=== PATIENT | female | born 1995 | race Caucasian/White ===

== ENCOUNTER 2016-09-28 01:51 | Emergency (ER) | payer SELFPAY ==
--- NOTE | 2016-09-28 02:01 | Emergency Department Record ---
History of Present Illness - General Chief complaint: Extremity Problem Stated complaint: POPPED RT WRIST Time Seen by Provider: 09/28/16 01:59 Source: Patient Mode of Arrival: Ambulatory Limitations: No limitations - History of Present Illness Initial comments: The patient states she "popped" her R wrist at work 3 hours ago and now is having slight pain in the area of the wrist. She denies any fall or direct trauma. She also denies any numbness or tingling. MD Complaint: Extremity pain Onset/Timin -: Hour(s) Location: Right History of Same: No Radiation: Distal Severity scale (1-10): 3 Improves with: Rest Worsens with: Palpation, Other Associated Symptoms: Denies other symptoms - Related Data Home Medications Medication Instructions Recorded Confirmed Last Taken Etonogestrel [Nexplanon] 68 mg SQ CONT 06/24/16 09/28/16 06/24/16 Allergies Allergy/AdvReac Type Severity Reaction Status Date / Time No Known Drug Allergies Allergy Verified 03/10/16 19:24 Travel Screening - Travel/Exposure Within Last 30 Days Have you traveled within the last 30 days?: No - Travel/Exposure Within Last Year Have you traveled outside the [place] in the last year?: No - Additonal Travel Details Have you been exposed to anyone with a communicable illness?: No - Travel Symptoms Symptom Screening: None Review of Systems Constitutional: Denies: Chills, Fever Eyes: Denies: Eye discharge ENT: Denies: Congestion Respiratory: Denies: Cough Past Medical History - SOCIAL HISTORY Smoking Status: Never smoker Alcohol Use: Occassional Drug Use: None - RESPIRATORY Hx Respiratory Disorders: No - CARDIOVASCULAR Hx Cardio Disorders: No - NEURO Hx Neuro Disorders: Yes Hx Headaches: Yes Comment:: macular degeneration - GI Hx GI Disorders: No - Hx Genitourinary Disorders: No - ENDOCRINE Hx Endocrine Disorders: No - MUSCULOSKELETAL Hx Musculoskeletal Disorders: No - PSYCH Hx Psych Problems: No Hx Depression: Yes Comment:: "borderline bi-polar" - HEMATOLOGY/ONCOLOGY Hx Hematology/Oncology Disorders: No Family Medical History Any Significant Family History?: Yes Family Hx Comment (NOT TO BE USED IN PLACE OF ITEMS BELOW): cerebral aneuerysm- grandmother Hx Diabetes: Mother Hx HTN: Mother, Brother/Sister, Grandparents Physical Exam - General General Appearance: Alert, Oriented x3, Cooperative, No acute distress - Head Head exam: Atraumatic, Normocephalic, Normal inspection - Eye Eye exam: Normal appearance, PERRL - Extremities Extremities exam: Normal inspection, Full ROM, Normal capillary refill, Tenderness (There is mild dorsal carpal tenderness.), Other (The R hand is NVI.) . negative: Joint swelling Course Vital Signs 09/28/16 01:57 Temperature 97.9 F Pulse Rate [ 85 Pulse Ox Probe] Respiratory 16 Rate Blood Pressure 107/72 [Left Arm] Pulse Ox 99 - Reevaluation(s) Reevaluation #1: I explained to the patient the xrays appear normal. We will place the wrist in a velcro splint and have her F/U with her work Occupational Health provider tomorrow. 09/28/16 02:19 Medical Decision Making - Data Complexity MDM Data: X-Ray Ordered and/or Reviewed - Radiology Data Radiology results: Report reviewed (R Wrist: neg.) Disposition Disposition: Discharge Clinical Impression: Acute wrist pain Qualifiers: Laterality: right Qualified Code(s): M25.531 - Pain in right wrist Disposition: Home, Self-Care Condition: (1) Good Instructions: Wrist Injury (ED) Additional Instructions: Please use Tylenol or Motrin for pain and ice and elevate the wrist when possible. Use the splint during the day. Please see your work Occupational health provider tomorrow for recheck. Forms: Patient Portal Access Time of Disposition: 02:21
[2016-09-28] MEDS ORDERED: IBUPROFEN 400 MG TABLET PO ONE (02:20)
--- NOTE | 2016-09-29 13:10 | RADIOLOGY REPORT ---
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 PAIN AND SWELLING SINCE. TECHNIQUE: Frontal, oblique, lateral, and navicular views of the right wrist were obtained. Comparison: None. Encounter: Initial. FINDINGS: There is normal bone mineralization. No acute fracture, dislocation , or destructive bone lesion is seen. The articular relations are maintained. No periarticular soft tissue abnormality is identified. IMPRESSION: NO ACUTE BONE OR JOINT ABNORMALITY IDENTIFIED. JOB NUMBER: [id number] MTDD
== END 2016-09-28 02:35 | disposition home or self-care (01) ==
LOC: ER 01:51
DX: G89.11 Acute pain due to trauma (principal); M25.532 Pain in left wrist; X50.9XXA Other and unspecified overexertion or strenuous movements or postures, initial encounter; Y99.0 Civilian activity done for income or pay
CPT/HCPCS: 99283

== ENCOUNTER 2016-11-22 14:30 | Emergency (ER) | payer SELFPAY ==
--- NOTE | 2016-11-22 14:51 | Emergency Department Record ---
History of Present Illness - General Chief Complaint: Headache Migraine Stated Complaint: CABRAL Time Seen by Provider: 11/22/16 14:42 Source: Patient, RN notes reviewed Mode of Arrival: Ambulatory - History of Present Illness Initial Comments: headache which started 4 days ago came on gradually slowly getting worse. Sat took 400 mg of ibuprofin. Complaint: Headache Onset/Timin -: Days(s) Onset Description: Sudden Location: Occipital Severity scale (1-10): 6 Quality: Other Consistency: Constant Improves With: Nothing Worsens With: None Context: Occured with exertion/activity Associated Symptoms: Nausea, Neck stiffness, Photophobia, Sensitivity to sound Treatments Prior to Arrival: None - Related Data Home Medications Medication Instructions Recorded Confirmed Last Taken Etonogestrel [Nexplanon] 68 mg SQ CONT 06/24/16 11/22/16 11/22/16 Pantoprazole Sodium [Protonix] 40 mg PO ASDIR PRN 11/22/16 11/22/16 Unknown Previous Rx's Medication Instructions Recorded Naproxen [Naprosyn] 500 mg PO Q12H #30 tab. 11/22/16 Allergies Allergy/AdvReac Type Severity Reaction Status Date / Time No Known Drug Allergies Allergy Verified 03/10/16 19:24 Travel Screening - Travel/Exposure Within Last 30 Days Have you traveled within the last 30 days?: No - Travel/Exposure Within Last Year Have you traveled outside the [place] in the last year?: No - Additonal Travel Details Have you been exposed to anyone with a communicable illness?: No - Travel Symptoms Symptom Screening: None Review of Systems Reviewed: No additional complaints except as noted below Constitutional: Reports: As per HPI. Denies: Chills, Fever, Malaise, Night sweats, Weakness, Weight change Eyes: Reports: As per HPI. Denies: Eye discharge, Eye pain, Photophobia, Vision change ENT: Reports: As per HPI. Denies: Congestion, Dental pain, Ear pain, Epistaxis , Hearing loss, Throat pain Respiratory: Reports: As per HPI. Denies: Cough, Dyspnea, Hemoptysis, Stridor, Wheezes Cardiovascular: Reports: As per HPI. Denies: Arrhythmia, Chest pain, Dyspnea on exertion, Edema, Murmurs, Orthopnea, Palpitations, Paroxysmal nocturnal dyspnea, Rheumatic Fever, Syncope Endocrine: Reports: As per HPI. Denies: Fatigue, Heat or cold intolerance, Polydipsia, Polyuria Gastrointestinal: Reports: As per HPI. Denies: Abdominal pain, Constipation, Diarrhea, Hematemesis, Hematochezia, Melena, Nausea, Vomiting Genitourinary: Reports: As per HPI. Denies: Abnormal menses, Discharge, Dyspareunia, Dysuria, Frequency, Hematuria, Incontinence, Retention, Urgency Musculoskeletal: Reports: As per HPI. Denies: Arthralgia, Back pain, Gout, Joint swelling, Myalgia, Neck pain Skin: Reports: As per HPI. Denies: Bruising, Change in color, Change in hair/ nails, Lesions, Pruritus, Rash Neurological: Reports: As per HPI, Headache. Denies: Abnormal gait, Confusion, Numbness, Paresthesias, Seizure, Tingling, Tremors, Vertigo, Weakness Psychiatric: Reports: As per HPI. Denies: Anxiety, Auditory hallucinations, Depression, Homicidal thoughts, Suicidal thoughts, Visual hallucinations Hematological/Lymphatic: Reports: As per HPI. Denies: Anemia, Blood Clots, Easy bleeding, Easy bruising, Swollen glands Past Medical History - SOCIAL HISTORY Smoking Status: Never smoker Alcohol Use: Rare Drug Use: None - RESPIRATORY Hx Respiratory Disorders: No - CARDIOVASCULAR Hx Cardio Disorders: No - NEURO Hx Neuro Disorders: Yes Hx Headaches: Yes Comment:: macular degeneration - GI Hx GI Disorders: No - Hx Genitourinary Disorders: No - ENDOCRINE Hx Endocrine Disorders: No - MUSCULOSKELETAL Hx Musculoskeletal Disorders: No - PSYCH Hx Psych Problems: No Hx Depression: Yes Comment:: "borderline bi-polar" - HEMATOLOGY/ONCOLOGY Hx Hematology/Oncology Disorders: No Family Medical History Any Significant Family History?: No Family Hx Comment (NOT TO BE USED IN PLACE OF ITEMS BELOW): cerebral aneuerysm- grandmother Hx Diabetes: Mother Hx HTN: Mother, Brother/Sister, Grandparents Physical Exam - General General Appearance: Alert, Oriented x3, Cooperative, No acute distress - Head Head exam: Normal inspection - Eye Eye exam: Normal appearance, PERRL Pupils: Normal accommodation - ENT ENT exam: Normal exam, Mucous membranes moist, Normal external ear exam, Normal orophraynx, TM's normal bilaterally Ear exam: Normal external inspection. negative: External canal tenderness Nasal Exam: Normal inspection. negative: Discharge, Sinus tenderness Mouth exam: Normal external inspection, Tongue normal Teeth exam: Normal inspection. negative: Dental caries Throat exam: Normal inspection. negative: Tonsillar erythema, Tonsillar exudate - Neck Neck exam: Normal inspection, Full ROM, Tenderness (cervical muscle pain on palpation no nuchal signs.) - Respiratory Respiratory exam: Normal lung sounds bilaterally. negative: Respiratory distress - Cardiovascular Cardiovascular Exam: Regular rate, Normal rhythm, Normal heart sounds - GI/Abdominal GI/Abdominal exam: Soft, Normal bowel sounds. negative: Tenderness - Rectal Rectal exam: Deferred - exam: Deferred - Extremities Extremities exam: Normal inspection, Full ROM, Normal capillary refill. negative: Tenderness - Back Back exam: Reports: Normal inspection, Full ROM. Denies: Muscle spasm, Rash noted, Tenderness - Neurological Neurological exam: Alert, Normal gait, Oriented X3, Reflexes normal - Psychiatric Psychiatric exam: Normal affect, Normal mood - Skin Skin exam: Dry, Intact, Normal color, Warm Course Vital Signs 11/22/16 14:33 Temperature 97.4 F L Pulse Rate 100 H Respiratory 16 Rate Blood Pressure 114/66 Pulse Ox 100 - Reevaluation(s) Reevaluation #1: patient states doesn't want to wait for a urine for a preg test because she just urinated and she would like to go to work. She also wants a pill for her headache and she wants to go to work. 11/22/16 15:01 Disposition Clinical Impression: Muscle tension headache Migraine Qualifiers: Migraine type: unspecified Status migrainosus presence: without status migrainosus Intractability: not intractable Qualified Code(s): G43.909 - Migraine, unspecified, not intractable, without status migrainosus Disposition: Home, Self-Care Instructions: Migraine Headache (ED), Tension Headache (ED) Additional Instructions: follow up with primary DrAnnamarie in one weeks Prescriptions: Naproxen [Naprosyn] 500 mg PO Q12H #30 tab.dr Forms: Patient Portal Access, Return to Work/School Time of Disposition: 15:06
[2016-11-22] MEDS ORDERED: NAPROXEN 250 MG TABLET PO ONE (15:02)
== END 2016-11-22 15:19 | disposition home or self-care (01) ==
LOC: ER 14:30
DX: G43.909 Migraine, unspecified, not intractable, without status migrainosus (principal); R11.0 Nausea; H53.149 Visual discomfort, unspecified; M43.6 Torticollis
CPT/HCPCS: 99282

== ENCOUNTER 2017-09-04 12:19 | Emergency (ER) | payer SELFPAY ==
[2017-09-04] MEDS ORDERED: 0.9 % SODIUM CHLORIDE 1,000 ML BAG IV ONE (13:06)
[2017-09-04] MEDS ORDERED: HYDROMORPHONE HCL 1 MG/ML SYRINGE IVP ONE (13:09)
[2017-09-04] MEDS ORDERED: ONDANSETRON HCL IV 4 MG/2 ML VIAL IVP ONE (13:09)
[2017-09-04] MEDS ORDERED: ACETAMINOPHEN 500 MG TABLET PO ONE (13:10)
[2017-09-04 13:24] LABS: BASO % 0.2 % (0-6); EOS % 0.7 % (0-6); GRAN % 67.9 % (47-80); HEMATOCRIT 35.5 % (35.0-47.0); HEMOGLOBIN 12.8 gm/dl (11.6-16.0); MEAN CELL VOLUME 87.2 fl (81-97); MEAN CORPUSCULAR HEMOGLOBIN 31.4 pg (27-33); MEAN CORPUSCULAR HGB CONC 36.1 g/dl (32-36); MEAN PLATELET VOLUME 10.3 fl (7.4-10.4); MONO % 11.2 % (0-9); PLATELET COUNT 230 K/uL (130-400); RED BLOOD COUNT 4.07 M/uL (3.80-5.40); RED CELL DISTRIBUTION WIDTH 11.9 % (11.5-14.5); WHITE BLOOD COUNT W/O DIFF 8.8 K/uL (4.2-12.2)
--- NOTE | 2017-09-04 13:36 | Emergency Department Record ---
History of Present Illness - General Chief complaint: Abscess Stated complaint: ABCESS Time Seen by Provider: 09/04/17 13:05 Source: Patient Mode of Arrival: Ambulatory Limitations: No limitations - History of Present Illness Initial comments: pt has had a lump in l groin that is sore and getting bigger. pt feels ill. complaint: Abscess/boil, Lesion Onset/Timin -: Days(s) Severity: Moderate Improves with: None Worsens with: None Associated symptoms: Fever, Myalgias Treatments Prior to Arrival: None - Related Data Previous Rx's Medication Instructions Recorded Amoxicillin/Potassium Clav 1 tab PO BID #20 tablet 09/04/17 [Augmentin 875Mg/125Mg] Allergies Allergy/AdvReac Type Severity Reaction Status Date / Time No Known Drug Allergies Allergy Verified 09/04/17 12:38 Travel Screening - Travel/Exposure Within Last 30 Days Have you traveled within the last 30 days?: No - Travel/Exposure Within Last Year Have you traveled outside the [place] in the last year?: No - Additonal Travel Details Have you been exposed to anyone with a communicable illness?: No - Travel Symptoms Symptom Screening: None Review of Systems Reviewed: No additional complaints except as noted below Constitutional: Reports: As per HPI. Denies: Chills, Fever, Malaise, Night sweats, Weakness, Weight change Eyes: Reports: As per HPI. Denies: Eye discharge, Eye pain, Photophobia, Vision change ENT: Reports: As per HPI. Denies: Congestion, Dental pain, Ear pain, Epistaxis , Hearing loss, Throat pain Respiratory: Reports: As per HPI. Denies: Cough, Dyspnea, Hemoptysis, Stridor, Wheezes Cardiovascular: Reports: As per HPI. Denies: Arrhythmia, Chest pain, Dyspnea on exertion, Edema, Murmurs, Orthopnea, Palpitations, Paroxysmal nocturnal dyspnea, Rheumatic Fever, Syncope Endocrine: Reports: As per HPI. Denies: Fatigue, Heat or cold intolerance, Polydipsia, Polyuria Gastrointestinal: Reports: As per HPI. Denies: Abdominal pain, Constipation, Diarrhea, Hematemesis, Hematochezia, Melena, Nausea, Vomiting Genitourinary: Reports: As per HPI. Denies: Abnormal menses, Discharge, Dyspareunia, Dysuria, Frequency, Hematuria, Incontinence, Retention, Urgency Musculoskeletal: Reports: As per HPI. Denies: Arthralgia, Back pain, Gout, Joint swelling, Myalgia, Neck pain Skin: Reports: As per HPI. Denies: Bruising, Change in color, Change in hair/ nails, Lesions, Pruritus, Rash Neurological: Reports: As per HPI. Denies: Abnormal gait, Confusion, Headache, Numbness, Paresthesias, Seizure, Tingling, Tremors, Vertigo, Weakness Psychiatric: Reports: As per HPI. Denies: Anxiety, Auditory hallucinations, Depression, Homicidal thoughts, Suicidal thoughts, Visual hallucinations Hematological/Lymphatic: Reports: As per HPI. Denies: Anemia, Blood Clots, Easy bleeding, Easy bruising, Swollen glands Past Medical History - SOCIAL HISTORY Smoking Status: Never smoker Alcohol Use: Occasional Drug Use: None - RESPIRATORY Hx Respiratory Disorders: No - CARDIOVASCULAR Hx Cardio Disorders: No - NEURO Hx Neuro Disorders: Yes Hx Headaches: Yes Comment:: macular degeneration - GI Hx GI Disorders: No - Hx Genitourinary Disorders: No - ENDOCRINE Hx Endocrine Disorders: No - MUSCULOSKELETAL Hx Musculoskeletal Disorders: No - PSYCH Hx Psych Problems: No Hx Depression: Yes Comment:: "borderline bi-polar" - HEMATOLOGY/ONCOLOGY Hx Hematology/Oncology Disorders: No Family Medical History Any Significant Family History?: Yes Family Hx Comment (NOT TO BE USED IN PLACE OF ITEMS BELOW): cerebral aneuerysm- grandmother Hx Diabetes: Mother Hx HTN: Mother, Brother/Sister, Grandparents Physical Exam - General General Appearance: Alert, Oriented x3, Cooperative, Mild distress - Head Head exam: Normal inspection - Eye Eye exam: Normal appearance, PERRL, EOMI Pupils: Normal accommodation - ENT ENT exam: Normal exam, Mucous membranes moist, Normal external ear exam, Normal orophraynx, TM's normal bilaterally Ear exam: Normal external inspection. negative: External canal tenderness Nasal Exam: Normal inspection. negative: Discharge, Sinus tenderness Mouth exam: Normal external inspection, Tongue normal Teeth exam: Normal inspection. negative: Dental caries Throat exam: Normal inspection. negative: Tonsillar erythema, Tonsillar exudate - Neck Neck exam: Normal inspection, Full ROM. negative: Tenderness - Respiratory Respiratory exam: Normal lung sounds bilaterally. negative: Respiratory distress - Cardiovascular Cardiovascular Exam: Normal rhythm, Normal heart sounds, Tachycardia - GI/Abdominal GI/Abdominal exam: Soft, Normal bowel sounds. negative: Tenderness - Rectal Rectal exam: Deferred - exam: Normal bimanual exam, Normal external exam, Normal speculum exam - Extremities Extremities exam: Full ROM, Normal capillary refill, Tenderness, Other (l groin lymphadanopathy) - Back Back exam: Reports: Normal inspection, Full ROM. Denies: Muscle spasm, Rash noted, Tenderness - Neurological Neurological exam: Alert, CN II-XII intact, Normal gait, Oriented X3 - Psychiatric Psychiatric exam: Normal affect, Normal mood - Skin Skin exam: Dry, Intact, Normal color, Warm Course Vital Signs 09/04/17 12:39 Temperature 102.7 F H Pulse Rate 129 H Respiratory 24 Rate Blood Pressure 132/75 Pulse Ox 98 Medical Decision Making - Lab Data Result diagrams: 09/04/17 13:10 09/04/17 13:10 Lab Results 09/04/17 Range/Units 13:10 WBC 8.8 (4.2-12.2) K/uL RBC 4.07 (3.80-5.40) M/uL Hgb 12.8 (11.6-16.0) gm/dl Hct 35.5 (35.0-47.0) % MCV 87.2 (81-97) fl MCH 31.4 (27-33) pg MCHC 36.1 H (32-36) g/dl RDW 11.9 (11.5-14.5) % Plt Count 230 (130-400) K/uL MPV 10.3 (7.4-10.4) fl Gran % 67.9 (47-80) % Lymphocytes % 20.0 (16-45) % Monocytes % 11.2 H (0-9) % Eosinophils % 0.7 (0-6) % Basophils % 0.2 (0-6) % Disposition Disposition: Discharge Clinical Impression: Cellulitis Qualifiers: Site of cellulitis: trunk Site of cellulitis of trunk: groin Qualified Code(s) : L03.314 - Cellulitis of groin Disposition: Home, Self-Care Condition: (1) Good Instructions: Cellulitis (ED) Additional Instructions: follow up with family doctor tomorrow. return sooner if worse. warm soaks to groin. Prescriptions: Amoxicillin/Potassium Clav [Augmentin 875Mg/125Mg] 1 tab PO BID #20 tablet Forms: Patient Portal Access Quality - Quality Measures Quality Measures: N/A - Blood Pressure Screening Does Patient Have Any of the Following: No Blood Pressure Classification: Pre-Hypertensive BP Reading Systolic Measurement: 132 Diastolic Measurement: 75 Screening for High Blood Pressure: < Pre-Hypertensive BP, F/U Documented > [ G8950] Pre-Hypertensive Follow-up Interventions: Follow-up with rescreen every year.
[2017-09-04 14:13] LABS: BLOOD UREA NITROGEN 9 mg/dL (6-20); CREATININE 0.6 mg/dL (0.5-0.9); EST GLOMERULAR FILTRATION RATE > 60 mL/min; GLUCOSE,RANDOM 90 mg/dL (74-109); LACTIC ACID 0.9 mmol/L (0.5-2.2)
[2017-09-04] MEDS ORDERED: CEFTRIAXONE SODIUM 1 GM in 0.9 % SODIUM CHLORIDE 100ML 100 ML IVPB ONE (15:01)
[2017-09-04 16:06] LABS: URINE APPEARANCE CLEAR; URINE BILIRUBIN NEGATIVE (NEGATIVE); URINE BLOOD NEGATIVE (NEGATIVE); URINE COLOR YELLOW; URINE GLUCOSE (UA) NEGATIVE (NEGATIVE); URINE KETONE TRACE (NEGATIVE); URINE LEUKOCYTE ESTERASE NEGATIVE (NEGATIVE); URINE NITRITE NEGATIVE (NEGATIVE); URINE PROTEIN NEGATIVE (NEGATIVE)
[2017-09-04 18:34] LABS: WET PREP NO TRICH OR YEAST
[2017-09-04 18:49] LABS: INFLUENZA A NEGATIVE (NEGATIVE); INFLUENZA B NEGATIVE (NEGATIVE)
[2017-09-04] MEDS ORDERED: AZITHROMYCIN 500 MG TABLET PO ONE (19:00)
--- NOTE | 2017-09-05 07:46 | CT SCAN REPORT ---
EXAM: PELVIS CT WITH IV CONTRAST HISTORY: FEVER FOR THREE DAYS. LEFT INGUINAL LUMP. TECHNIQUE: Contiguous axial images from the L4-L5 level to the proximal femora were obtained after the uneventful intravenous administration of 100 ml of Omnipaque 300. Comparison: None. FINDINGS: The visualized loops of small and large bowel in the visceral pelvis are of normal caliber with no wall thickening. The uterus is present. The ovaries are symmetric in size. No free pelvic fluid or adenopathy. The abdominal wall is unremarkable. Mild fat stranding in the left inguinal region with two enlarged lymph nodes measuring 2.6 x 1.4 cm and 1.6 x 1.3 cm respectively. No hernia. No lytic or blastic osseous lesions. IMPRESSION: CELLULITIS WITH PROBABLE REACTIVE LYMPH NODES IN THE LEFT INGUINAL REGION. NO HERNIA. JOB NUMBER: [id number] [facility]
--- NOTE | 2017-09-05 09:05 | RADIOLOGY REPORT ---
EXAM: CHEST, TWO VIEWS HISTORY: DIFFICULTY IN BREATHING. TECHNIQUE: Frontal and lateral views of the chest were performed. FINDINGS: The heart size is normal. The lung bautista are clear. The osseous structures are normal. IMPRESSION: NEGATIVE CHEST EXAMINATION. JOB NUMBER: [id number] MTDD
[2017-09-06 12:33] LABS: GC SPECIMEN TYPE Cervix
== END 2017-09-04 19:15 | disposition home or self-care (01) ==
LOC: ER 12:19
DX: L03.314 Cellulitis of groin (principal); R06.00 Dyspnea, unspecified
CPT/HCPCS: 71020; 72193; 80048; 81003; 83605; 85025; 87210; 87400; 96365; 96375; 99284; J1170; J2405

== ENCOUNTER 2018-01-22 20:56 | Emergency (ER) | payer SELFPAY ==
[2018-01-22] MEDS ORDERED: ACETAMINOPHEN 325 MG TAB PO ONE (21:11)
--- NOTE | 2018-01-22 21:14 | Emergency Department Record ---
History of Present Illness - General Chief complaint: ENT Stated complaint: SORE THROAT,HEADACHE,FEVER Time Seen by Provider: 01/22/18 21:03 Source: Patient Mode of Arrival: Ambulatory Limitations: No limitations - History of Present Illness Initial comments: The patient is here due to a one day hx of a ST, mild CABRAL, body aches, and fever. She feels like she is very fatigued. There is no hx of any nausea, vomiting, diarrhea, AP, back pain or dysuria. MD complaint: Sore throat Onset/Timin -: Days(s) Location: Throat Consistency: Constant, Getting worse Associated Symptoms: Cough, Fever, Sore throat - Related Data Allergies Allergy/AdvReac Type Severity Reaction Status Date / Time No Known Drug Allergies Allergy Verified 09/04/17 12:38 Travel Screening - Travel/Exposure Within Last 30 Days Have you traveled within the last 30 days?: No Review of Systems Constitutional: Reports: Chills, Fever, Malaise Eyes: Denies: Eye discharge ENT: Reports: Congestion, Throat pain. Denies: Ear pain Respiratory: Denies: Cough, Dyspnea Cardiovascular: Denies: Arrhythmia Past Medical History - SOCIAL HISTORY Smoking Status: Never smoker Alcohol Use: None Drug Use: None - RESPIRATORY Hx Respiratory Disorders: No - CARDIOVASCULAR Hx Cardio Disorders: No - NEURO Hx Neuro Disorders: Yes Hx Headaches: Yes Comment:: macular degeneration - GI Hx GI Disorders: No - Hx Genitourinary Disorders: No - ENDOCRINE Hx Endocrine Disorders: No - MUSCULOSKELETAL Hx Musculoskeletal Disorders: No - PSYCH Hx Psych Problems: No Hx Depression: Yes Comment:: "borderline bi-polar" - HEMATOLOGY/ONCOLOGY Hx Hematology/Oncology Disorders: No Family Medical History Any Significant Family History?: Yes Family Hx Comment (NOT TO BE USED IN PLACE OF ITEMS BELOW): cerebral aneuerysm- grandmother Hx Diabetes: Mother Hx HTN: Mother, Brother/Sister, Grandparents Physical Exam - General General Appearance: Alert, Oriented x3, Cooperative, No acute distress - Head Head exam: Atraumatic, Normocephalic, Normal inspection - Eye Eye exam: Normal appearance, PERRL, EOMI - ENT ENT exam: Normal exam, Mucous membranes moist, Normal external ear exam, TM's normal bilaterally. negative: Normal orophraynx Throat exam: Tonsillar erythema. negative: Normal inspection, Tonsillomegaly, Tonsillar exudate - Neck Neck exam: Normal inspection, Full ROM. negative: Lymphadenopathy, Meningismus (The neck is very supple.), Tenderness - Respiratory Respiratory exam: Normal lung sounds bilaterally. negative: Respiratory distress - Cardiovascular Cardiovascular Exam: Regular rate, Normal rhythm, Normal heart sounds - GI/Abdominal GI/Abdominal exam: Soft, Normal bowel sounds. negative: Tenderness - Extremities Extremities exam: Normal inspection, Full ROM, Normal capillary refill. negative: Tenderness - Neurological Neurological exam: Alert, Normal gait, Oriented X3. negative: Abnormal gait, Motor sensory deficit - Psychiatric Psychiatric exam: negative: Agitated, Anxious - Skin Skin exam: negative: Rash Course Vital Signs 01/22/18 21:02 Temperature 100.9 F H Pulse Rate [ 120 H Pulse Ox Probe] Respiratory 20 Rate Blood Pressure 118/76 [Left Arm] Pulse Ox 97 - Reevaluation(s) Reevaluation #1: The patient is doing a lot better at this time. Her temp is much improved and she is resting comfortably. I did explain that the lab work did not demonstrate any serious cause for the illness and it appears she has a viral URI. She is to continue to use Tylenol and Motrin for fever and see her PCP if not better in 2- 3 days. 01/22/18 22:53 Disposition Disposition: Discharge Clinical Impression: Acute viral syndrome Disposition: Home, Self-Care Condition: (2) Stable Instructions: Viral Syndrome (ED) Additional Instructions: Please drink plenty of fluids and use Tylenol and Motrin for fever. Please see your family doctor for recheck in 2-3 days if not better. Return to the ER for any worsening symptoms. Forms: Patient Portal Access Time of Disposition: 22:55 Quality - Quality Measures Quality Measures: N/A - Blood Pressure Screening View Details: Yes Does Patient Have Any of the Following: No Blood Pressure Classification: Pre-Hypertensive BP Reading Systolic Measurement: 117 Diastolic Measurement: 85 Screening for High Blood Pressure: < Pre-Hypertensive BP, F/U Documented > [ G8950] Pre-Hypertensive Follow-up Interventions: Referral to alternative/primary care provider.
[2018-01-22 21:53] LABS: INFLUENZA A NEGATIVE (NEGATIVE); INFLUENZA B NEGATIVE (NEGATIVE)
[2018-01-22 22:23] LABS: URINE APPEARANCE CLEAR; URINE BILIRUBIN SMALL (NEGATIVE); URINE BLOOD NEGATIVE (NEGATIVE); URINE COLOR STRAW; URINE GLUCOSE (UA) NEGATIVE (NEGATIVE); URINE KETONE TRACE (NEGATIVE); URINE LEUKOCYTE ESTERASE NEGATIVE (NEGATIVE); URINE NITRITE NEGATIVE (NEGATIVE)
[2018-01-22 22:25] LABS: HCG,QUALITATIVE URINE NEGATIVE (NEGATIVE)
== END 2018-01-22 22:58 | disposition home or self-care (01) ==
LOC: ER 20:56
DX: B34.9 Viral infection, unspecified (principal); J02.9 Acute pharyngitis, unspecified; R51 Headache; R53.83 Other fatigue
CPT/HCPCS: 81003; 81025; 87400; 87880; 99283

== ENCOUNTER 2018-04-21 22:47 | Emergency (ER) | payer MEDICAID ==
[2018-04-21] MEDS: IBUPROFEN 600 MG TABLET PO ONE (23:07)
--- NOTE | 2018-04-21 23:07 | Emergency Department Record ---
History of Present Illness - General Chief Complaint: Headache Migraine Stated Complaint: HEADACHE/NECK PAIN Time Seen by Provider: 04/21/18 22:54 Source: Patient Mode of Arrival: Ambulatory Limitations: No limitations - History of Present Illness Initial Comments: 22 yo female presents to ED for evaluation of a headache symptoms that began 2 days ago, reports that she has not taken anything for her headache symptoms. Patient denies fevers, chills, or recent illness. Patient denies neck stiffness symptoms. Patient also denies use of anticoagulation medications or health problems at her baseline. Patient also reports "swelling to the right neck for years". MD Complaint: Headache Onset/Timin -: Days(s) Onset Description: Gradual Location: Frontal, Left Severity: Moderate Quality: Throbbing, Similar to previous headaches Consistency: Constant Improves With: Nothing Worsens With: None, Other Treatments Prior to Arrival: None Treatment Prior to Arrival Comment:: nothing - Related Data Allergies Allergy/AdvReac Type Severity Reaction Status Date / Time No Known Drug Allergies Allergy Verified 09/04/17 12:38 Travel Screening - Travel/Exposure Within Last 30 Days Have you traveled within the last 30 days?: No - Travel/Exposure Within Last Year Have you traveled outside the [place] in the last year?: No - Additonal Travel Details Have you been exposed to anyone with a communicable illness?: No - Travel Symptoms Symptom Screening: None Review of Systems Constitutional: Denies: Chills, Fever, Malaise, Night sweats Eyes: Denies: Eye discharge, Eye pain ENT: Denies: Congestion, Ear pain, Epistaxis Respiratory: Denies: Cough, Dyspnea Cardiovascular: Denies: Chest pain, Dyspnea on exertion Endocrine: Denies: Fatigue, Heat or cold intolerance Gastrointestinal: Denies: Abdominal pain, Nausea, Vomiting Genitourinary: Denies: Incontinence, Retention Musculoskeletal: Reports: Other (Neck swelling). Denies: Arthralgia, Back pain Skin: Denies: Bruising, Change in color Neurological: Reports: Headache. Denies: Abnormal gait, Confusion, Seizure Psychiatric: Denies: Anxiety Hematological/Lymphatic: Denies: Anemia, Blood Clots Past Medical History - SOCIAL HISTORY Smoking Status: Never smoker Alcohol Use: None Drug Use: None - RESPIRATORY Hx Respiratory Disorders: No - CARDIOVASCULAR Hx Cardio Disorders: No - NEURO Hx Neuro Disorders: Yes Hx Headaches: Yes Comment:: macular degeneration - GI Hx GI Disorders: No - Hx Genitourinary Disorders: No - ENDOCRINE Hx Endocrine Disorders: No - MUSCULOSKELETAL Hx Musculoskeletal Disorders: No - PSYCH Hx Psych Problems: No Hx Depression: Yes Comment:: "borderline bi-polar" - HEMATOLOGY/ONCOLOGY Hx Hematology/Oncology Disorders: No Family Medical History Any Significant Family History?: Yes Family Hx Comment (NOT TO BE USED IN PLACE OF ITEMS BELOW): cerebral aneuerysm- grandmother Hx Diabetes: Mother Hx HTN: Mother, Brother/Sister, Grandparents Physical Exam - General General Appearance: Alert, Oriented x3, Cooperative, Mild distress Limitations: No limitations - Head Head exam: Atraumatic, Normocephalic, Normal inspection Head exam detail: negative: Abrasion, Contusion, Doss's sign, General tenderness, Hematoma, Laceration - Eye Eye exam: Normal appearance. negative: Conjunctival injection, Periorbital swelling, Periorbital tenderness, Scleral icterus - ENT Ear exam: negative: Auricular hematoma, Auricular trauma Nasal Exam: negative: Active bleeding, Discharge, Dried blood, Foreign body Mouth exam: negative: Drooling, Laceration, Muffled voice, Tongue elevation - Neck Neck exam: Normal inspection, Full ROM, Other (No STS or lymphadenopathy is present to the right side of the neck on examination.). negative: Lymphadenopathy, Meningismus, Tenderness - Respiratory Respiratory exam: Normal lung sounds bilaterally. negative: Rales, Respiratory distress, Rhonchi, Stridor - Cardiovascular Cardiovascular Exam: Regular rate, Normal rhythm, Normal heart sounds - GI/Abdominal GI/Abdominal exam: Soft. negative: Rebound, Rigid, Tenderness - Rectal Rectal exam: Deferred - exam: Deferred - Extremities Extremities exam: Normal inspection. negative: Calf tenderness, Pedal edema, Tenderness - Back Back exam: Denies: CVA tenderness (R), CVA tenderness (L) - Neurological Neurological exam: Alert, Normal gait, Oriented X3 - Psychiatric Psychiatric exam: Normal affect, Normal mood - Skin Skin exam: Normal color. negative: Abrasion Type of lesion: negative: abrasion Course Vital Signs 04/21/18 22:53 Temperature 98.1 F Pulse Rate [ 86 Pulse Ox Probe] Respiratory 20 Rate Blood Pressure 127/80 [Left Arm] Pulse Ox 99 - Reevaluation(s) Reevaluation #1: 04/21/18 23:47 Patient reports very little improvement, will place IV and administer Phenergan and Benadryl. Reevaluation #2: 04/22/18 00:39 Patient reassessed following benadryl and phenergan, reports that her headache is now gone and she is feeling much better. Patient appears stable for discharge at this time. Disposition Disposition: Discharge Clinical Impression: Headache Qualifiers: Headache type: unspecified Headache chronicity pattern: acute headache Intractability: not intractable Qualified Code(s): R51 - Headache Disposition: Home, Self-Care Condition: (2) Stable Instructions: Acute Headache (ED) Additional Instructions: Return to ED if your symptoms worsen or if you have any concerns. Ibuprofen as directed. Follow-up with your family doctor in 3-5 days as directed. Forms: Patient Portal Access Time of Disposition: 00:41 Quality - Quality Measures Quality Measures: N/A, Headache (All Ages) - Headache: Neuroimaging Quality Measure: Measure #419: Overuse of Neuroimaging ICD10 Codes Entered: Yes Neurological Exam: Patient had a normal neurological exam. [G9535] Headache: Use of Neuroimaging: < CTA, CT, MRA or MRI was NOT ordered > [G9534] - Blood Pressure Screening Does Patient Have Any of the Following: No Blood Pressure Classification: Pre-Hypertensive BP Reading Systolic Measurement: 127 Diastolic Measurement: 80 Screening for High Blood Pressure: < Pre-Hypertensive BP, F/U Documented > [ G8950] Pre-Hypertensive Follow-up Interventions: Referral to alternative/primary care provider.
[2018-04-21] MEDS: DIPHENHYDRAMINE HCL 50 MG/ML VIAL IVP ONE (23:58)
[2018-04-21] MEDS: PROMETHAZINE HCL 12.5 MG in 0.9 % SODIUM CHLORIDE 100ML 100 ML IVPB ONE (23:59)
[2018-04-21] MEDS: 0.9 % SODIUM CHLORIDE 1000ML 1,000 ML IV SCH (23:59)
== END 2018-04-22 01:14 | disposition home or self-care (01) ==
LOC: ER 22:47
DX: R51 Headache (principal); M54.2 Cervicalgia
CPT/HCPCS: 96365; 96375; 99284; J1200; J2550; J7030

== ENCOUNTER 2019-08-20 19:01 | Emergency (ER) | payer MEDICAID ==
--- NOTE | 2019-08-20 19:17 | Emergency Department Record ---
History of Present Illness - General Chief complaint: Female Urogenital Problem Stated complaint: BLOOD IN URINE Time Seen by Provider: 08/20/19 19:02 Source: Patient Mode of Arrival: Ambulatory Limitations: No limitations - History of Present Illness Initial comments: 23 yo female presents to ED for evaluation of blood in the urine that began this evening. Patient denies fevers, chills, flank pain, urgency, or burning symptoms. Patient denies abdominal pain symptoms. Patient denies health problems at her baseline. MD Complaint: Other Onset/Timin -: Hour(s) Severity: Mild Consistency: Intermittent Improves with: None Worsens with: None Associated Symptoms: Denies other symptoms - Related Data Home Medications Medication Instructions Recorded Confirmed Last Taken Naproxen 1 tab PO DAILY 08/20/19 08/20/19 08/20/19 Topiramate [Topamax] 50 mg PO BID 08/20/19 08/20/19 08/20/19 Previous Rx's Medication Instructions Recorded Cephalexin [Keflex] 500 mg PO TID #20 cap 08/20/19 Allergies Allergy/AdvReac Type Severity Reaction Status Date / Time No Known Drug Allergies Allergy Verified 09/04/17 12:38 Travel Screening - Travel/Exposure Within Last 30 Days Have you traveled within the last 30 days?: No - Travel/Exposure Within Last Year Have you traveled outside the [place] in the last year?: No - Additonal Travel Details Have you been exposed to anyone with a communicable illness?: No - Travel Symptoms Symptom Screening: None Review of Systems Constitutional: Denies: Chills, Fever, Malaise, Night sweats Eyes: Denies: Eye discharge, Eye pain ENT: Denies: Congestion, Ear pain, Epistaxis Respiratory: Denies: Cough, Dyspnea Cardiovascular: Denies: Chest pain, Dyspnea on exertion Endocrine: Denies: Fatigue, Heat or cold intolerance Gastrointestinal: Denies: Abdominal pain, Nausea, Vomiting Genitourinary: Reports: Hematuria. Denies: Incontinence, Retention Musculoskeletal: Denies: Arthralgia, Back pain Skin: Denies: Bruising, Change in color Neurological: Denies: Abnormal gait, Confusion, Headache, Seizure Psychiatric: Denies: Anxiety Hematological/Lymphatic: Denies: Anemia, Blood Clots Past Medical History - SOCIAL HISTORY Smoking Status: Never smoker Alcohol Use: Occasional Drug Use: None - RESPIRATORY Hx Respiratory Disorders: No - CARDIOVASCULAR Hx Cardio Disorders: No - NEURO Hx Neuro Disorders: Yes Hx Headaches: Yes Comment:: macular degeneration - GI Hx GI Disorders: No - Hx Genitourinary Disorders: No - ENDOCRINE Hx Endocrine Disorders: No - MUSCULOSKELETAL Hx Musculoskeletal Disorders: No - PSYCH Hx Psych Problems: No Hx Depression: Yes Comment:: "borderline bi-polar" - HEMATOLOGY/ONCOLOGY Hx Hematology/Oncology Disorders: No Family Medical History Any Significant Family History?: Yes Family Hx Comment (NOT TO BE USED IN PLACE OF ITEMS BELOW): cerebral aneuerysm- grandmother Hx Diabetes: Mother Hx HTN: Mother, Brother/Sister, Grandparents Physical Exam - General General Appearance: Alert, Oriented x3, Cooperative, No acute distress Limitations: No limitations - Head Head exam: Atraumatic, Normocephalic, Normal inspection Head exam detail: negative: Abrasion, Contusion, Doss's sign, General tenderness, Hematoma, Laceration - Eye Eye exam: Normal appearance. negative: Conjunctival injection, Periorbital swelling, Periorbital tenderness, Scleral icterus - ENT Ear exam: negative: Auricular hematoma, Auricular trauma Nasal Exam: negative: Active bleeding, Discharge, Dried blood, Foreign body Mouth exam: negative: Drooling, Laceration, Muffled voice, Tongue elevation - Neck Neck exam: Normal inspection. negative: Meningismus, Tenderness - Respiratory Respiratory exam: Normal lung sounds bilaterally. negative: Rales, Respiratory distress, Rhonchi, Stridor - Cardiovascular Cardiovascular Exam: Regular rate, Normal rhythm, Normal heart sounds - GI/Abdominal GI/Abdominal exam: Soft. negative: Rebound, Rigid, Tenderness - Rectal Rectal exam: Deferred - exam: Deferred - Extremities Extremities exam: Normal inspection. negative: Pedal edema, Tenderness - Back Back exam: Denies: CVA tenderness (R), CVA tenderness (L) - Neurological Neurological exam: Alert, Normal gait, Oriented X3 - Psychiatric Psychiatric exam: Normal affect, Normal mood - Skin Skin exam: Normal color. negative: Abrasion Type of lesion: negative: abrasion Course Vital Signs 08/20/19 19:09 Temperature 98.0 F Pulse Rate 98 H Respiratory 20 Rate Blood Pressure 139/82 Pulse Ox 100 - Reevaluation(s) Reevaluation #1: 08/20/19 20:06 UA reviewed: TNTC RBCs 0-2 WBCs 0-2 Epithial cells Few Bacteria Reevaluation #2: 08/20/19 20:49 CT Abdomen and Pelvis: Non-obstructing 7x5 mm calculus right kidney, otherwise negative Laboratory studies were reviewed and appear grossly unremarkable for an acute process. Patient appears to be resting comfortably on re-examination, symptoms do not appear c/w obstructing calculus right. Will treat with Keflex as directed for probable UTI. Patient appears stable for discharge at this time. Medical Decision Making - Lab Data Result diagrams: 08/20/19 19:50 08/20/19 20:34 Disposition Disposition: Discharge Clinical Impression: Hematuria Qualifiers: Hematuria type: gross Qualified Code(s): R31.0 - Gross hematuria UTI (urinary tract infection) Qualifiers: Urinary tract infection type: acute cystitis Hematuria presence: with hematuria Qualified Code(s): N30.01 - Acute cystitis with hematuria Disposition: Home, Self-Care Condition: (2) Stable Instructions: Urinary Tract Infection in Women (ED) Additional Instructions: Return to ED if your symptoms worsen or if you have any concerns. Keflex as directed. Follow-up with your family doctor in 3-5 days as directed. Prescriptions: Cephalexin [Keflex] 500 mg PO TID #20 cap Forms: Patient Portal Access Time of Disposition: 20:52 Quality - Quality Measures Quality Measures: N/A - Blood Pressure Screening Does Patient Have Any of the Following: No Blood Pressure Classification: Pre-Hypertensive BP Reading Systolic Measurement: 139 Diastolic Measurement: 82 Screening for High Blood Pressure: < Pre-Hypertensive BP, F/U Documented > [G8950] Pre-Hypertensive Follow-up Interventions: Referral to alternative/primary care provider.
[2019-08-20 19:21] LABS: URINE APPEARANCE TURBID; URINE BILIRUBIN NEGATIVE (NEGATIVE); URINE BLOOD LARGE (NEGATIVE); URINE COLOR RED; URINE GLUCOSE (UA) NEGATIVE (NEGATIVE); URINE KETONE TRACE (NEGATIVE); URINE LEUKOCYTE ESTERASE NEGATIVE (NEGATIVE); URINE NITRITE POSITIVE (NEGATIVE)
[2019-08-20 19:27] LABS: URINE BACTERIA FEW; URINE EPITHELIAL CELLS 0 - 2 (FEW); URINE WBC 0 - 2 (0-2/hpf)
[2019-08-20 20:02] LABS: HEMATOCRIT 44.1 % (35.0-47.0); HEMOGLOBIN 15.2 gm/dl (11.6-16.0); MEAN CORPUSCULAR HGB CONC 34.5 g/dl (32-36); MEAN PLATELET VOLUME 9.9 fl (7.4-10.4); PLATELET COUNT 264 K/uL (130-400); RED BLOOD COUNT 5.07 M/uL (3.80-5.40); RED CELL DISTRIBUTION WIDTH 12.3 % (11.5-14.5); WHITE BLOOD COUNT W/O DIFF 5.4 K/uL (4.2-12.2)
[2019-08-20 20:44] LABS: BLOOD UREA NITROGEN 16 mg/dL (6-20); CREATININE 0.8 mg/dL (0.5-0.9); EST GLOMERULAR FILTRATION RATE > 60 mL/min
[2019-08-20 20:45] LABS: TOTAL PROTEIN 7.6 g/dL (6.6-8.7)
[2019-08-20 20:47] LABS: GLUCOSE,RANDOM 100 mg/dL (74-109)
--- NOTE | 2019-08-20 20:47 | CT SCAN REPORT ---
EXAMINATION: CT Abdomen and Pelvis without IV Contrast EXAM DATE: 08/20/2019 8:11 PM TECHNIQUE: Standard protocol CT imaging of the abdomen and pelvis was performed without intravenous c ontrast. INDICATION: flank pain, hematuria COMPARISON: 09/04/2017 ENCOUNTER: Not applicable CT ABDOMEN AND PELVIS FINDINGS: Lung Bases: Couple of tiny nodular densities are noted at the right lung base. These are likely benig n especially in the absence of any malignant tumor history. Hepatobiliary: The liver has a normal size with a smooth surface. Pancreas: The pancreas is normal. Spleen: The spleen is not enlarged. Adrenals: The adrenal glands are normal. Kidneys, Ureters, & Bladder: 27 x 5 mm nonobstructive calculus is visualized in the midpole region of the right kidney. The urinary bladder is almost empty. Gastrointestinal: The stomach and small bowel are normal with no obstruction or inflammation. The lar ge bowel is within normal limits. Reproductive Organs: Unremarkable Lymphatic System: There is no adenopathy within the abdomen or pelvis. Vasculature: Normal caliber abdominal aorta Peritoneum: No free fluid, free air, or inflammation Abdominal wall & Musculoskeletal: Minimal anterolisthesis of L5 on S1 with bilateral spondylolytic de fects. Assessment of the solid organs, soft tissues, and vascular structures is overall limited on noncontra st imaging, IMPRESSION: A 7 x 5 mm nonobstructive right renal calculus is visualized. Otherwise grossly unremarkable examinat ion. 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 Couple of tiny nodular densities are noted at the right lung base, likely benign, as described above. Dictated by: Rolando Castillo MD on 08/20/2019 8:36 PM. .
[2019-08-20 20:48] LABS: PLATELET ESTIMATE NORMAL (NORMAL)
[2019-08-20 20:50] LABS: ALB/GLOB RATIO 1.2 (1.1-1.8); ALBUMIN 4.1 g/dL (4.0-5.0); ALKALINE PHOSPHATASE 91 U/L (35-104); ALT/SGPT 30 U/L (<33); AST/SGOT 41 U/L (10.0-35.0)
[2019-08-20] MEDS: CEPHALEXIN 500 MG CAPSULE PO STA (20:59)
== END 2019-08-20 21:03 | disposition home or self-care (01) ==
LOC: ER 19:01
DX: N39.0 Urinary tract infection, site not specified (principal); F31.9 Bipolar disorder, unspecified; H35.30 Unspecified macular degeneration
CPT/HCPCS: 74176; 80053; 81001; 81025; 85027; 99283; 99284

== ENCOUNTER 2019-09-07 16:19 | Emergency (ER) | payer MEDICAID ==
--- NOTE | 2019-09-07 16:30 | Emergency Department Record ---
History of Present Illness - General Chief Complaint: Cough Stated Complaint: COUGH 5 DAYS,FLU DX Time Seen by Provider: 09/07/19 16:22 Source: Patient Mode of Arrival: Ambulatory Limitations: No limitations - History of Present Illness Initial Comments: 23 yo female presents to ED for evaluation of cough symptoms following diagnosis 5 days ago of both strep pharyngitis and influenza B. Patient reports she has been taking Amoxicillin for her pharyngitis symptoms, however developed a constant non-productive cough 2 days ago. Patient denies fevers symptoms in 4 days time, denies health problems at her baseline. MD Complaint: Cough Onset/Timin -: Days(s) Severity: Moderate Consistency: Constant Improves With: Nothing Worsens With: Deep breaths Context: Sick contacts Associated Symptoms: Denies other symptoms Treatments Prior to Arrival: Antibiotics - Related Data Previous Rx's Medication Instructions Recorded Benzonatate [Tessalon] 2 cap PO Q8H PRN #30 cap 09/07/19 Allergies Allergy/AdvReac Type Severity Reaction Status Date / Time No Known Drug Allergies Allergy Unverified 09/02/19 17:29 Review of Systems Constitutional: Denies: Chills, Fever, Malaise, Night sweats Eyes: Denies: Eye discharge, Eye pain ENT: Reports: Congestion. Denies: Ear pain, Epistaxis Respiratory: Reports: Cough. Denies: Dyspnea Cardiovascular: Denies: Chest pain, Dyspnea on exertion Endocrine: Denies: Fatigue, Heat or cold intolerance Gastrointestinal: Denies: Abdominal pain, Nausea, Vomiting Genitourinary: Denies: Incontinence, Retention Musculoskeletal: Denies: Arthralgia, Back pain Skin: Denies: Bruising, Change in color Neurological: Denies: Abnormal gait, Confusion, Headache, Tingling, Tremors Psychiatric: Denies: Anxiety Hematological/Lymphatic: Denies: Anemia, Blood Clots Past Medical History - SOCIAL HISTORY Smoking Status: Never smoker Drug Use: None - RESPIRATORY Hx Respiratory Disorders: No - CARDIOVASCULAR Hx Cardio Disorders: No - NEURO Hx Neuro Disorders: Yes Hx Headaches: Yes Comment:: macular degeneration - GI Hx GI Disorders: No - Hx Genitourinary Disorders: No - ENDOCRINE Hx Endocrine Disorders: No - MUSCULOSKELETAL Hx Musculoskeletal Disorders: No - PSYCH Hx Psych Problems: No Hx Depression: Yes Comment:: "borderline bi-polar" - HEMATOLOGY/ONCOLOGY Hx Hematology/Oncology Disorders: No Family Medical History Family Hx Comment (NOT TO BE USED IN PLACE OF ITEMS BELOW): cerebral aneuerysm- grandmother Hx Diabetes: Mother Hx HTN: Mother, Brother/Sister, Grandparents Physical Exam - General General Appearance: Alert, Oriented x3, Cooperative, No acute distress Limitations: No limitations - Head Head exam: Atraumatic, Normocephalic, Normal inspection Head exam detail: negative: Abrasion, Contusion, Doss's sign, General tenderness, Hematoma, Laceration - Eye Eye exam: Normal appearance. negative: Conjunctival injection, Periorbital swelling, Periorbital tenderness, Scleral icterus - ENT Ear exam: negative: Auricular hematoma, Auricular trauma Nasal Exam: negative: Active bleeding, Discharge, Dried blood, Foreign body Mouth exam: negative: Drooling, Laceration, Muffled voice, Tongue elevation - Neck Neck exam: Normal inspection. negative: Meningismus, Tenderness - Respiratory Respiratory exam: Normal lung sounds bilaterally. negative: Respiratory distress, Rhonchi, Stridor, Wheezes - Cardiovascular Cardiovascular Exam: Regular rate, Normal rhythm, Normal heart sounds - Rectal Rectal exam: Deferred - exam: Deferred - Extremities Extremities exam: Normal inspection. negative: Pedal edema, Tenderness - Neurological Neurological exam: Alert, Normal gait, Oriented X3 - Psychiatric Psychiatric exam: Normal affect, Normal mood - Skin Skin exam: Normal color. negative: Abrasion Type of lesion: negative: abrasion Course - Reevaluation(s) Reevaluation #1: 09/07/19 16:33 Patient's symptoms appear c/w viral URI Will treat her cough symptoms with Josiah Connelly as directed with instructions to complete her amoxicillin as prescribed. Patient appears stable for discharge at this time. Disposition Disposition: Discharge Clinical Impression: Influenza Disposition: Home, Self-Care Condition: (2) Stable Instructions: Influenza (ED) Additional Instructions: Return to ED if your symptoms worsen or if you have any concerns. Josiah Connelly as directed. Follow-up with your family doctor in 3-5 days as directed. Prescriptions: Benzonatate [Tessalon] 2 cap PO Q8H PRN #30 cap PRN Reason: Cough Forms: Patient Portal Access Time of Disposition: 16:30 Quality - Quality Measures Quality Measures: N/A - Blood Pressure Screening Does Patient Have Any of the Following: No Blood Pressure Classification: Pre-Hypertensive BP Reading Systolic Measurement: 140 Diastolic Measurement: 81 Screening for High Blood Pressure: < Pre-Hypertensive BP, F/U Documented > [G8950] Pre-Hypertensive Follow-up Interventions: Referral to alternative/primary care provider.
== END 2019-09-07 16:35 | disposition home or self-care (01) ==
LOC: ER 16:19
DX: J10.1 Influenza due to other identified influenza virus with other respiratory manifestations (principal)
CPT/HCPCS: 99283